=== PATIENT | female | born 1985 | race Caucasian/White ===

== ENCOUNTER 2017-04-15 13:12 | Emergency (ER) | payer OTHER ==
[~2017-04-15] VITALS: Ht 160 cm; Wt 66.8 kg
[2017-04-15 13:39] VITALS: BP 98/60; TEMP 98.5
[2017-04-15] MEDS ORDERED: AMOXICILLIN875 MG PO (14:39)
[2017-04-15 14:48] VITALS: PULSE 73
== END 2017-04-15 14:49 | disposition home or self-care (01) ==
LOC: COL.ER 13:12
DX: J32.9 Chronic sinusitis, unspecified (principal); R22.1 Localized swelling, mass and lump, neck